=== PATIENT | female | born 1960 | race Caucasian/White ===

== ENCOUNTER 2021-09-24 21:50 | Inpatient (IN) | payer MEDICAID ==
[~2021-09-24] VITALS: Ht 162.6 cm; Wt 66.4 kg
[2021-09-24 23:06] LABS: BASOPHILS # (AUTO) 0.2 X10'3 (0-0.2); EOSINOPHILS # (AUTO) 0.1 X10'3 (0-0.9); EOSINOPHILS % (AUTO) 1.1 % (0-6); HEMATOCRIT 44.6 % (35.0-45.0); LYMPHOCYTES % (AUTO) 22.9 % (21-51); MEAN CORPUSCULAR HEMOGLOBIN 29.4 PG (27.0-31.0); MEAN CORPUSCULAR HGB CONC 33.7 g/dL (33.0-36.5); MEAN CORPUSCULAR VOLUME 87.3 FL (78-98); MEAN PLATELET VOLUME 7.7 FL (7.4-10.4); MONOCYTES # (AUTO) 0.6 X10'3 (0-0.9); MONOCYTES % (AUTO) 7.3 % (2-12); NEUTROPHILS # (AUTO) 5.8 X10'3 (1.8-7.7); NEUTROPHILS % (AUTO) 66.7 % (42-75); PLATELET COUNT 348 X10'3 (140-440); RED BLOOD COUNT 5.11 X10'6 (4.20-5.60); RED CELL DISTRIBUTION WIDTH 12.6 % (11.5-14.5); WHITE BLOOD COUNT 8.6 X10'3 (4.5-11.0)
[2021-09-24] MEDS ORDERED: mag hydrox/Alum hydrox/simeth 30ml oral suspension PO ONE (23:20)
[2021-09-24] MEDS ORDERED: acetaminophen 325mg tablet PO ONE (23:20)
[2021-09-24] MEDS ORDERED: famotidine 20mg tablet PO ONE (23:20)
[2021-09-24] MEDS ORDERED: LIDOcaine Viscous 15ml cup MM ONE (23:20)
[2021-09-24] MEDS ORDERED: ondansetron 4mg rapidly disintigrating tab PO ONE (23:20)
[2021-09-25] VITALS (19 sets, daily range): BP systolic 94–119; BP diastolic 52–74
[2021-09-25 00:07] LABS: ALANINE AMINOTRANSFERASE 32 U/L (12-78); ALBUMIN 3.7 G/DL (3.4-5.0); ALKALINE PHOSPHATASE 131 IU/L (46-116); ANION GAP 9 (8-16); ASPARTATE AMINO TRANSFERASE 22 U/L (10-37); BILIRUBIN,TOTAL 0.5 MG/DL (0.1-1.0); BLOOD UREA NITROGEN 14 MG/DL (7-18); BUN/CREATININE RATIO 14.9 (6.6-38.0); CALCIUM 9.3 MG/DL (8.5-10.1); CHLORIDE 103 MMOL/L (99-107); CREATININE 0.94 MG/DL (0.40-0.90); GLUCOSE 114 MG/DL (70-104); POTASSIUM 3.8 MMOL/L (3.5-5.1); SODIUM 141 MMOL/L (135-145); TOTAL CARBON DIOXIDE 29.2 MMOL/L (24-32); TOTAL PROTEIN 7.5 G/DL (6.4-8.2); eGFR 60 ML/MIN
[2021-09-25 00:10] LABS: LIPASE 94 U/L (73-393)
[2021-09-25 00:41] LABS: CLARITY,URINE CLEAR (Clear); GLUCOSE, URINE NEGATIVE (Neg); KETONES,URINE 15 mg/dl (Neg); LEUKOCYTE ESTERASE ,URINE NEGATIVE (Neg); NITRITES, URINE NEGATIVE (Neg); OCCULT BLOOD,URINE NEGATIVE (Neg); PH,URINE 5.5 (4.8-8.0); PROTEIN,URINE NEGATIVE (Neg); UROBILINOGEN,URINE 0.2 E.U/dL (0.2-1.0)
[2021-09-25 00:42] LABS: COLOR,URINE DARK YELLOW (Yellow); UA COLLECTION TYPE CLN CATCH MIDSTREAM
[2021-09-25] MEDS ORDERED: FAMO-128 PO (00:49)
[2021-09-25 07:12] LABS: BASOPHILS # (AUTO) 0.1 X10'3 (0-0.2); BASOPHILS % (AUTO) 1.2 % (0-1); EOSINOPHILS # (AUTO) 0.1 X10'3 (0-0.9); EOSINOPHILS % (AUTO) 1.9 % (0-6); HEMATOCRIT 42.6 % (35.0-45.0); HEMOGLOBIN 14.3 g/dl (12.0-16.0); LYMPHOCYTES # (AUTO) 2.2 X10'3 (1.1-4.8); LYMPHOCYTES % (AUTO) 30.9 % (21-51); MEAN CORPUSCULAR HEMOGLOBIN 29.3 PG (27.0-31.0); MEAN CORPUSCULAR HGB CONC 33.6 g/dL (33.0-36.5); MEAN CORPUSCULAR VOLUME 87.3 FL (78-98); MEAN PLATELET VOLUME 7.3 FL (7.4-10.4); MONOCYTES # (AUTO) 0.6 X10'3 (0-0.9); MONOCYTES % (AUTO) 8.7 % (2-12); NEUTROPHILS # (AUTO) 4.1 X10'3 (1.8-7.7); NEUTROPHILS % (AUTO) 57.3 % (42-75); PLATELET COUNT 319 X10'3 (140-440); RED BLOOD COUNT 4.88 X10'6 (4.20-5.60); RED CELL DISTRIBUTION WIDTH 12.7 % (11.5-14.5); WHITE BLOOD COUNT 7.1 X10'3 (4.5-11.0)
[2021-09-25] MEDS ORDERED: normal saline 1000ML IV soln IVB ONE (07:20)
[2021-09-25] MEDS ORDERED: normal saline 1000ml 1,000 ML IV ONE (07:20)
[2021-09-25] MEDS ORDERED: ondansetron/PF 4mg/2ml inj IV PRN ×2 (08:55→12:35)
[2021-09-25] MEDS ORDERED: magnesium hydroxide 30ml (MOM) UD suspension PO PRN (08:55)
[2021-09-25] MEDS ORDERED: acetaminophen 325mg tablet PO PRN ×2 (08:55→16:55)
[2021-09-25] MEDS: normal saline 1000ml 1,000 ML IV SCH ×2 (08:55→16:21)
[2021-09-25] MEDS ORDERED: mag hydrox/Alum hydrox/simeth 30ml oral suspension PO PRN (08:55)
[2021-09-25] MEDS ORDERED: NO HOME MEDS (10:56)
[2021-09-25] MEDS ORDERED: INDOCYANINE GREEN 25 MG/10 ML VIAL IV ONE ×2 (11:22→11:25)
--- NOTE | 2021-09-25 11:29 | NUR ---
Patient transported to OR; Report given to SUMMER Lowery on 4th floor.
--- NOTE | 2021-09-25 11:29 | NUR ---
received report from SUMMER Pickett. States patient is in OR. Awaiting patient arrival to room 4023B.
[2021-09-25] MEDS ORDERED: BUPIVAcaine 0.5% inj/PF 30 ML ONE (11:32)
[2021-09-25] MEDS ORDERED: LIDOcaine 1% 30ml preserv. free vial ONE (11:32)
[2021-09-25] MEDS ORDERED: desflurane 240ml liquid inh. IH ONE (11:58)
[2021-09-25] MEDS ORDERED: propofol inj 20 ML IV ONE (12:07)
[2021-09-25] MEDS ORDERED: neostigmine methylsulfate 1 MG/ML 10ml vial ONE (12:07)
[2021-09-25] MEDS ORDERED: dexamethasone sod phosphate 4mg/ml inj. ONE (12:07)
[2021-09-25] MEDS ORDERED: rocuronium 10mg/ml inj IV ONE (12:07)
[2021-09-25] MEDS ORDERED: LIDOcaine 2% (20mg/ml) 5ml vial ONE (12:07)
[2021-09-25] MEDS ORDERED: glycopyrrolate 0.2mg/ml inj ONE (12:08)
[2021-09-25] MEDS ORDERED: meperidine/PF 50mg/ml syringe ONE (12:15)
[2021-09-25] MEDS ORDERED: ceFAZolin 1000mg inj ONE ×2 (12:17)
[2021-09-25] MEDS ORDERED: ondansetron/PF 4mg/2ml inj ONE (12:19)
[2021-09-25] MEDS ORDERED: BUPIVAcaine 0.5% inj/PF 30 ml vial IJ ONE (12:26)
[2021-09-25] MEDS ORDERED: morphine 4 MG/ML inj SYRINge IV PRN (12:35)
[2021-09-25] MEDS ORDERED: ringers solution, lacted 1,000 ML IV SCH (12:35)
[2021-09-25] MEDS ORDERED: labetalol 20mg/4ml (5mg/ml) syringe IV PRN (12:35)
[2021-09-25] MEDS ORDERED: morphine 2 MG/ML inj. syringe IV PRN (12:35)
[2021-09-25] MEDS ORDERED: hydrALAZINE 20mg/ml inj. IV PRN (12:35)
[2021-09-25] MEDS ORDERED: fentaNYL/PF 50MCG/1 ML 2ML syringe IV PRN ×2 (12:35)
[2021-09-25] MEDS ORDERED: naloxone 0.4 mg/ml inj IV PRN (13:20)
[2021-09-25] MEDS ORDERED: HYDROcodone/acetaminophen 5mg/325mg tablet PO PRN (13:20)
[2021-09-25] MEDS ORDERED: HYDROcodone/acetaminophen 10/325mg tab PO PRN (13:20)
--- NOTE | 2021-09-25 13:25 | NUR ---
Received from OR via BED, accompanied by Anesthesiologist and report given by Anesthesiologist. PATIENT WAKING UP, NO S/S OF PAIN, V/S WNL, SCD ON, 20G TO LUE, ABDOMEN LAP SITE CLEAN W/ NO S/S OF COMPLICATIONS
--- NOTE | 2021-09-25 14:35 | NUR ---
PATIENT A&OX4, DENIES PAIN, V/S WNL, SCD ON, 20G TO LUE, ABDOMEN LAP SITE CLEAN W/ NO S/S OF COMPLICATIONS.PATIENT TAKEN TO ROOM WITH ALL BELONGINGS AND HOOKED UP TO MONITORS IN ROOM AND GIVEN CALL LIGHT, REPORT GIVEN TO RN WHO HAS TAKEN OVER PATIENT CARE.
--- NOTE | 2021-09-25 14:48 | NUR ---
Received patient to room 4023B. Patient is A&O and c/o pain and discomfort to abd as well as nausea. Patient only wanting to take tylenol or ibuprofen for pain and refuses dilaudid or norco at this time. Oriented patient to room and call light. Call light within patient's reach, bed low and locked. Post op vitals initiated. Visitor at bedside. Will continue to monitor.
--- NOTE | 2021-09-25 15:06 | NUR ---
Patient too painful and does not want to have 2RN skin check done at this time.
--- NOTE | 2021-09-25 15:55 | NUR ---
PAGER ID: [phone] MESSAGE: [id number]- Connie Maryana- c/o pain and has only [place]. Does not want strong narcotics only Tylenol and iburprofen. Ok with Toradol. Received Tylenol but only slightly helpful. Any new orders?Thank you- Beverley [phone]
--- NOTE | 2021-09-25 18:31 | NUR ---
Problems reprioritized. Patient report given, questions answered & plan of care reviewed with SUMMER Donovan.
--- NOTE | 2021-09-25 19:20 | NUR ---
Patient in room ORTHO 4023. I have received report from JESUSITA WHEELER and had the opportunity to ask questions and assume patient care.
[2021-09-25] MEDS: docusate sod 100mg capsule PO SCH (21:26)
[2021-09-25] MEDS: ketorolac trometh. 30mg/ml inj. IV SCH (21:26)
[2021-09-26] MEDS: ketorolac trometh. 30mg/ml inj. IV SCH ×3 (02:00→14:00)
[2021-09-26 02:33] VITALS: BP 94/53
[2021-09-26] MEDS: normal saline 1000ml 1,000 ML IV SCH (02:40)
[2021-09-26 06:00] VITALS: BP 99/47
--- NOTE | 2021-09-26 06:32 | NUR ---
Patient in room ORTHO 4023. I have received report from SUMMER Dnoovan and had the opportunity to ask questions and assume patient care.
--- NOTE | 2021-09-26 06:45 | NUR ---
Problems reprioritized. Patient report given, questions answered & plan of care reviewed with NICOLLE WHEELER.
[2021-09-26] MEDS: docusate sod 100mg capsule PO SCH ×2 (08:17→19:55)
[2021-09-26 10:00] VITALS: BP 99/56
[2021-09-26] MEDS: acetaminophen 325mg tablet PO PRN ×2 (12:21→18:37)
[2021-09-26 15:00] VITALS: BP 96/54
[2021-09-26 18:00] VITALS: BP 106/61
--- NOTE | 2021-09-26 18:20 | NUR ---
Problems reprioritized. Patient report given, questions answered & plan of care reviewed with SUMMER Donovan.
--- NOTE | 2021-09-26 18:50 | NUR ---
Patient in room ORTHO 4023. I have received report from NICOLLE WHEELER and had the opportunity to ask questions and assume patient care.
[2021-09-26 22:00] VITALS: BP 97/54
[2021-09-27] MEDS: acetaminophen 325mg tablet PO PRN ×2 (04:52→11:53)
[2021-09-27 06:00] VITALS: BP 100/62
--- NOTE | 2021-09-27 06:10 | NUR ---
Problems reprioritized. Patient report given, questions answered & plan of care reviewed with DANIELLE WHEELER.
[2021-09-27 06:16] LABS: BASOPHILS % (AUTO) 0.3 % (0-1); EOSINOPHILS # (AUTO) 0.1 X10'3 (0-0.9); EOSINOPHILS % (AUTO) 1.8 % (0-6); HEMATOCRIT 36.4 % (35.0-45.0); HEMOGLOBIN 12.5 g/dl (12.0-16.0); LYMPHOCYTES # (AUTO) 1.8 X10'3 (1.1-4.8); LYMPHOCYTES % (AUTO) 30.8 % (21-51); MEAN CORPUSCULAR HEMOGLOBIN 30.4 PG (27.0-31.0); MEAN CORPUSCULAR HGB CONC 34.3 g/dL (33.0-36.5); MEAN CORPUSCULAR VOLUME 88.8 FL (78-98); MEAN PLATELET VOLUME 7.7 FL (7.4-10.4); MONOCYTES # (AUTO) 0.5 X10'3 (0-0.9); MONOCYTES % (AUTO) 8.2 % (2-12); NEUTROPHILS # (AUTO) 3.4 X10'3 (1.8-7.7); NEUTROPHILS % (AUTO) 58.9 % (42-75); PLATELET COUNT 286 X10'3 (140-440); RED CELL DISTRIBUTION WIDTH 12.2 % (11.5-14.5); WHITE BLOOD COUNT 5.8 X10'3 (4.5-11.0)
[2021-09-27 06:21] LABS: ALANINE AMINOTRANSFERASE 98 U/L (12-78); ALBUMIN 2.6 G/DL (3.4-5.0); ALBUMIN/GLOBULIN RATIO 0.8 (1.1-1.5); ALKALINE PHOSPHATASE 140 IU/L (46-116); ANION GAP 7 (8-16); ASPARTATE AMINO TRANSFERASE 60 U/L (10-37); BILIRUBIN,TOTAL 0.3 MG/DL (0.1-1.0); BLOOD UREA NITROGEN 12 MG/DL (7-18); BUN/CREATININE RATIO 16.4 (6.6-38.0); CALCIUM 8.4 MG/DL (8.5-10.1); CHLORIDE 109 MMOL/L (99-107); CREATININE 0.73 MG/DL (0.40-0.90); GLUCOSE 86 MG/DL (70-104); POTASSIUM 3.8 MMOL/L (3.5-5.1); SODIUM 145 MMOL/L (135-145); TOTAL CARBON DIOXIDE 28.6 MMOL/L (24-32); eGFR 81 ML/MIN
--- NOTE | 2021-09-27 06:39 | NUR ---
Patient in room ORTHO 4023. I have received report from Venus WHEELER and had the opportunity to ask questions and assume patient care.
[2021-09-27] MEDS: docusate sod 100mg capsule PO SCH (08:16)
[2021-09-27 10:00] VITALS: BP 126/79
--- NOTE | 2021-09-27 13:45 | NUR ---
Pt is A & O x4 and in no apparent distress. Pt verbalizes understanding of all DC orders, the importance of following up with PCP and Dr Orozco per pre-op arrangement. Pt given his ice packs, a new ON-Q and instructed on removal of MARIA DE JESUS dressing and ON-Q Cath. pt reminded of total knee restrictions and was able to teach back. Pt states he had his other knee done francesca he is familiar with DC instructions. IV Cath removed intact,. Pt taken via wheel chair to the front where his pcik him up.
== END 2021-09-27 13:35 | disposition home or self-care (01) | DRG 263 ==
LOC: ER 21:51 → OBSVTOIN 09-25 08:57 → ED HOLD 09-25 08:57 → EDBEDREQ 09-25 10:34 → ORTHO 4S 09-25 11:38 → OBSVTOIN 09-26 14:48 → INTOOBSV 09-26 14:48 → UNDODISIN 09-27 13:35
PROVIDERS: ADMIT Family Medicine; ATTEND Family Medicine
PROC: 8E0W4CZ Robotic Assisted Procedure of Trunk Region, Percutaneous Endoscopic Approach (ICD-10-PCS; 2021-09-25)
PROC: BF522Z0 Other Imaging of Gallbladder using Fluorescing Agent, Intraoperative (ICD-10-PCS; 2021-09-25)
PROC: 0FT44ZZ Resection of Gallbladder, Percutaneous Endoscopic Approach (ICD-10-PCS; principal; 2021-09-25 11:58)
DX: K80.00 Calculus of gallbladder with acute cholecystitis without obstruction (principal); K21.9 Gastro-esophageal reflux disease without esophagitis; Z20.822 Contact with and (suspected) exposure to COVID-19
CPT/HCPCS: 36415; 76700; 80053; 81003; 83690; 84145; 84484; 85025; 85610; 86140; 86885; 86900; 86901; 87081; 87635; 93005; 96361; 96374; 96375; 99285; A4215; A4618; A7000; C9803; G0378; J0690; J1100; J1885; J2175; J2405; J2704; J2710; J3490; J7030; J7120; S0020